=== PATIENT | female | born 1980 | race African-American/Black ===

== ENCOUNTER 2016-08-21 19:59 | Emergency (ER) | payer SELFPAY ==
--- NOTE | 2016-08-21 20:14 | ER Document Report ---
ED Medical Screen (RME) - General Chief Complaint: Sore Throat Stated Complaint: SORE THROAT Mode of Arrival: Ambulatory Information source: Patient Notes: pt presents with sore throat, fever that started today. Tonsillar exudate noted I have greeted and performed a rapid initial assessment of this patient. A comprehensive ED assessment and evaluation of the patient, analysis of test results and completion of the medical decision making process will be conducted by additional ED providers. TRAVEL OUTSIDE OF THE [place] IN LAST 30 DAYS: No - Related Data Allergies/Adverse Reactions: No Known Allergies Allergy (Verified 12/15/15 09:23) Past Medical History - Social History Chew tobacco use (# tins/day): No Frequency of alcohol use: Rare Drug Abuse: None Neurological Medical History: Reports: Hx Migraine Renal/ Medical History: Denies: Hx Peritoneal Dialysis - Immunizations Immunizations up to date: Yes Hx Diphtheria, Pertussis, Tetanus Vaccination: Yes Physical Exam - Vital signs Vitals: Temp Pulse Resp BP Pulse Ox 100.1 F 98 16 129/85 H 100 08/21/16 20:05 08/21/16 20:05 08/21/16 20:05 08/21/16 20:05 08/21/16 20:05 Course - Vital Signs Vital signs: Temp Pulse Resp BP Pulse Ox 100.1 F 98 16 129/85 H 100 08/21/16 20:05 08/21/16 20:05 08/21/16 20:05 08/21/16 20:05 08/21/16 20:05
[2016-08-22] MEDS ORDERED: DEXAMETHASONE 4 MG TABLET PO ONE (01:51)
--- NOTE | 2016-08-22 01:53 | ER Document Report ---
ED General - General Chief Complaint: Sore Throat Stated Complaint: SORE THROAT Mode of Arrival: Ambulatory Notes: Patient is a 36-year-old female without past medical history who presents with 2 days of progressively worsening sore throat. Patient does describe the pain in her throat as being a constant, severe, stabbing pain. States swallowing worsens the pain. She is not tried anything to improve her symptoms. Denies recent history of similar symptoms in the past. She is uncertain she has had sick contacts. She has not seen her primary care doctor regarding today's concerns. She has not had a fever at home but does note generalized fatigue. Denies any difficulty breathing and states she is able to swallow it is just painful. TRAVEL OUTSIDE OF THE [place] IN LAST 30 DAYS: No - Related Data Allergies/Adverse Reactions: No Known Allergies Allergy (Verified 12/15/15 09:23) Past Medical History - General Information source: Patient - Social History Smoking Status: Current Every Day Smoker Chew tobacco use (# tins/day): No Frequency of alcohol use: Rare Drug Abuse: None Lives with: Spouse/Significant other Family History: Reviewed & Not Pertinent Patient has suicidal ideation: No Patient has homicidal ideation: No Neurological Medical History: Reports: Hx Migraine Renal/ Medical History: Denies: Hx Peritoneal Dialysis - Immunizations Immunizations up to date: Yes Hx Diphtheria, Pertussis, Tetanus Vaccination: Yes Review of Systems - Review of Systems Notes: Constitutional: Negative for fever. HENT: Positive for sore throat. Eyes: Negative for visual changes. Cardiovascular: Negative for chest pain. Respiratory: Negative for shortness of breath. Gastrointestinal: Negative for abdominal pain, vomiting or diarrhea. Genitourinary: Negative for dysuria. Musculoskeletal: Negative for back pain. Skin: Negative for rash. Neurological: Negative for headaches, weakness or numbness. 10 point ROS negative except as marked above and in HPI. Physical Exam - Vital signs Vitals: Temp Pulse Resp BP Pulse Ox 100.1 F 98 16 129/85 H 100 08/21/16 20:05 08/21/16 20:05 08/21/16 20:05 08/21/16 20:05 08/21/16 20:05 Interpretation: Normal Notes: PHYSICAL EXAMINATION: GENERAL: Well-appearing, well-nourished and in no acute distress. HEAD: Atraumatic, normocephalic. EYES: Pupils equal round and reactive to light, extraocular movements intact, sclera anicteric, conjunctiva are normal. ENT: Bilateral tonsillar exudates. Uvula is midline. Oropharynx is widely patent. No swelling beneath the tongue. NECK: Normal range of motion, bilateral anterior cervical lymphadenopathy as well as bilateral submandibular lymphadenopathy LUNGS: Breath sounds clear to auscultation bilaterally and equal. No wheezes rales or rhonchi. HEART: Regular rate and rhythm without murmurs ABDOMEN: Soft, nontender, normoactive bowel sounds. No guarding, no rebound. No masses appreciated. EXTREMITIES: Normal range of motion, no pitting or edema. No cyanosis. NEUROLOGICAL: No focal neurological deficits. Moves all extremities spontaneously and on command. PSYCH: Normal mood, normal affect. SKIN: Warm, Dry, normal turgor, no rashes or lesions noted. Course - Re-evaluation Re-evalutation: 08/22/16 01:52 Presentation of several days of sore throat in an otherwise well-appearing patient. Rapid strep is negative. History and exam are not consistent with a retropharyngeal abscess or peritonsillar abscess. Airway is patent. No difficulty handling oral secretions. Vitals within normal limits. Patient has been treated with a single dose of oral Decadron to assist with pharyngeal swelling. At this time will discharge with return precautions and follow-up recommendations. Verbal discharge instructions given a the bedside and opportunity for questions given. Medication warnings reviewed. Patient is in agreement with this plan and has verbalized understanding of return precautions and the need for primary care follow-up in the nex - Vital Signs Vital signs: Temp Pulse Resp BP Pulse Ox 99.0 F 85 16 123/79 99 08/22/16 02:16 08/22/16 02:16 08/21/16 20:05 08/22/16 02:16 08/22/16 02:16 Discharge - Discharge Clinical Impression: Sore throat Condition: Good Disposition: HOME, SELF-CARE Additional Instructions: Your strep test is negative. Your sore throat is likely due to a viral infection and should resolve in the next 7-10 days. Please return if you began to develop difficulty swallowing, difficulty breathing, have worsening pain, or any other symptoms that are worrisome to you. Forms: Return to Work
[2016-08-22 02:18] VITALS: BP 123/79
== END 2016-08-22 02:18 | disposition home or self-care (01) ==
LOC: ER 19:59
DX: J02.9 Acute pharyngitis, unspecified (principal); R53.83 Other fatigue; F17.200 Nicotine dependence, unspecified, uncomplicated
CPT/HCPCS: 87070; 87880; 99283

== ENCOUNTER 2017-08-21 14:53 | Emergency (ER) | payer SELFPAY ==
[2017-08-21 15:17] VITALS: BP 119/68
--- NOTE | 2017-08-21 17:50 | ER Document Report ---
ED Extremity Problem, Lower - General Chief Complaint: Ankle Pain Stated Complaint: ANKLE PAIN Time Seen by Provider: 08/21/17 17:08 Mode of Arrival: Ambulatory Information source: Patient TRAVEL OUTSIDE OF THE [place] IN LAST 30 DAYS: No - HPI Patient complains to provider of: Pain Location: Ankle Notes: Patient is here with complaints of bilateral ankle pain. 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 For the last few weeks she has been having some pain and intermittent swelling to the bilateral ankles. She states that when she gets home she elevates them and this seems to improve. She was having some pain and swelling today and had to call off work. Her work told her that she needed to have a work note so she came in the emergency department stating that she needs a work note due to missing work. She denies any injuries to the ankles. She denies fevers. She denies numbness , tingling, weakness. She denies any chest pain or shortness of breath. She denies any leg pain or swelling. She denies any nausea, vomiting, diarrhea. No redness. She has no other complaints at this time. The pain is worse with walking and standing and seems to improve when she rests and elevates. She states that she has had this happen intermittently for the past several years. - Related Data Allergies/Adverse Reactions: No Known Allergies Allergy (Verified 08/21/17 14:56) Past Medical History - Social History Smoking Status: Unknown if Ever Smoked Family History: Reviewed & Not Pertinent Patient has suicidal ideation: No Patient has homicidal ideation: No Neurological Medical History: Reports: Hx Migraine Renal/ Medical History: Denies: Hx Peritoneal Dialysis - Immunizations Immunizations up to date: Yes Hx Diphtheria, Pertussis, Tetanus Vaccination: Yes Review of Systems - Review of Systems -: Yes All other systems reviewed and negative Physical Exam - Vital signs Vitals: Temp Pulse Resp BP Pulse Ox 98.7 F 62 17 119/68 99 08/21/17 15:16 08/21/17 15:16 08/21/17 15:16 08/21/17 15:16 08/21/17 15:16 - Notes Notes: GENERAL: alert, cooperative, nontoxic, no distress. HEAD: normocephalic, atraumatic EYES: conjunctiva pink without discharge, no external redness or swelling. EARS: no external swelling, no external redness NOSE: atraumatic, no external swelling MOUTH/THROAT: mucous membranes moist and pink NECK: soft, supple, full range of motion, no meningismus. CHEST: no distress, lungs clear and equal throughout. No wheezing, rales, rhonchi. CARDIAC: regular rate and rhythm, no murmur, normal capillary refill, normal pulses. BACK: full range of motion, no CVA tenderness. EXTREMITIES: full range of motion of all extremities. No redness, no swelling. No tenderness to palpation of the ankles. Achilles are intact bilaterally. Normal Lewis's test. No calf swelling or tenderness. No pitting edema. Normal pulse and sensation distally. NEURO: alert and oriented 3, no focal deficits, full range of motion of all extremities. PYSCH: appropriate mood, affect. Patient is cooperative. SKIN: pink, warm, dry, no rash. Course - Re-evaluation Re-evalutation: 08/21/17 17:47 The patient is nontoxic appearing with stable vitals. She has had intermittent ankle pain bilaterally for the last few weeks without injury. On exam she is no significant tenderness, no swelling, no redness, normal neurovascular exam, compartments are soft. No calf pain or swelling. No pitting edema. Lungs are clear. Is likely some overuse causing her pain. She states that the main reason she came emergency department today was because she called off work and she was told she needed a work note. Patient will be discharged home with a prescription for Naprosyn with instructions to rest, ice, elevate. Follow-up with her doctor if she continues to have these problems. Follow-up sooner for increasing pain, high fever, redness, numbness, tingling, weakness, any further concerns. The patient's emergency department workup and current diagnosis were explained to the patient and or family. Follow-up instructions were provided. Medications if prescribed were discussed. Instructions for when to return to the emergency department including specific worrisome symptoms were discussed with the patient and/or family. - Vital Signs Vital signs: Temp Pulse Resp BP Pulse Ox 98.7 F 62 17 119/68 99 08/21/17 15:16 08/21/17 15:16 08/21/17 15:16 08/21/17 15:16 08/21/17 15:16 Discharge - Discharge Clinical Impression: Chronic ankle pain, bilateral Condition: Stable Disposition: HOME, SELF-CARE Instructions: Ice & Elevation ([facility]) Additional Instructions: Take medications as prescribed. You may also take 1000 mg of Tylenol every 6 hours as needed for pain. Rest, ice, elevate your ankles. Follow-up if not better in 1-2 weeks, sooner for increasing pain, high fever, redness, numbness, tingling, weakness, any further concerns. Prescriptions: Naproxen [Naprosyn] 500 mg PO BID #20 tablet Forms: Elevated Blood Pressure, Smoking Cessation Education, Return to Work Referrals: [facility] [Provider Group] - Follow up as needed
== END 2017-08-21 18:06 | disposition home or self-care (01) ==
LOC: ER 14:53
DX: G89.29 Other chronic pain (principal); M25.572 Pain in left ankle and joints of left foot; M25.571 Pain in right ankle and joints of right foot
CPT/HCPCS: 99284

== ENCOUNTER 2017-11-07 12:33 | Emergency (ER) | payer SELFPAY ==
[2017-11-07 12:42] VITALS: BP 116/82
[2017-11-07] MEDS ORDERED: PROMETHAZINE HCL INJ 25 MG/1 ML VIAL IM ONE (13:28)
[2017-11-07] MEDS ORDERED: KETOROLAC TROMETHAMINE INJ/PF 30 MG/1 ML SDV IM ONE (13:28)
--- NOTE | 2017-11-07 13:36 | ER Document Report ---
HPI - HPI Pain Level: 2 Notes: Patient is a 37-year-old female who presents to the ED complaining of continued intermittent bilateral ankle pain and "feeling bad" x 1 week. Patient states that she had one episode of vomiting that was mucousy, but otherwise she has abdominal pain. 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 Patient has had this ankle pain for 1 year. She has not been seen by her primary care doctor or any specialist for her chronic issues. She is still eating and drinking without difficulties. She is urinating normally and having normal bowel movements. Denies any drug allergies. Patient states that she needs an antibiotic for her pain. Patient is currently on her menstrual period. She denies . On occasion she will have some nausea. No other concerns or complaints at this time. Denies any headache, fever, neck pain, URI, sore throat, chest pain, palpitations, syncope, cough, shortness of breath, wheeze, dyspnea, abdominal pain, diarrhea, urinary retention, dysuria, hematuria, loss of control of bowel or bladder, numbness/tingling, saddle anesthesia, muscle paralysis/weakness, or rash. - ROS Systems Reviewed and Negative: Yes All other systems reviewed and negative - REPRODUCTIVE Reproductive: DENIES: : - MUSCULOSKELETAL Musculoskeletal: REPORTS: Extremity pain - bilateral ankles Past Medical History - Social History Smoking Status: Current Every Day Smoker Chew tobacco use (# tins/day): No Frequency of alcohol use: Occasional Drug Abuse: None Family History: Reviewed & Not Pertinent Patient has suicidal ideation: No Patient has homicidal ideation: No Neurological Medical History: Reports: Hx Migraine Renal/ Medical History: Denies: Hx Peritoneal Dialysis - Immunizations Immunizations up to date: Yes Hx Diphtheria, Pertussis, Tetanus Vaccination: Yes Vertical Provider Document - CONSTITUTIONAL Agree With Documented VS: Yes Notes: PHYSICAL EXAMINATION: GENERAL: Well-appearing, well-nourished and in no acute distress. HEAD: Atraumatic, normocephalic. EYES: Pupils equal round and reactive to light, extraocular movements intact, sclera anicteric, conjunctiva are normal. ENT: EAC clear b/l. TM's intact b/l without erythema, fluid, or perforation. Nares patent and without discharge. oropharynx clear without exudates. No tonsilar hypertrophy or erythema. Moist mucous membranes. No sinus tenderness. NECK: Normal range of motion, supple without lymphadenopathy LUNGS: Breath sounds clear to auscultation bilaterally and equal. No wheezes rales or rhonchi. HEART: Regular rate and rhythm without murmurs, rubs, gallops. ABDOMEN: Soft, nondistended abdomen. No guarding, no rebound. No masses appreciated. Normal bowel sounds present. No CVA tenderness bilaterally. No tenderness at all. Musculoskeletal: Ankles b/l: No swelling, erythema, warmth, or deformity. FROM to passive/active. Strength 5+/5. Jorge neg. N/V intact distal. Pt able to ambulate in the room w/o difficulty. Achilles intact. Extremities: No cyanosis, clubbing, or edema b/l. Peripheral pulses 2+. Capillary refill less than 3 seconds. NEUROLOGICAL: Normal speech, normal gait. Normal sensory, motor exams PSYCH: Normal mood, normal affect. SKIN: Warm, Dry, normal turgor, no rashes or lesions noted. - INFECTION CONTROL TRAVEL OUTSIDE OF THE [place] IN LAST 30 DAYS: No Course - Re-evaluation Re-evalutation: 11/07/17 13:32 Patient is an afebrile, well-hydrated, 37-year-old female who presents to the ED with chronic bilateral ankle pain. Vitals are acceptable. PE is otherwise unremarkable for any neurovascular compromise, obvious tendon/ligament rupture, obvious fracture/dislocation, septic joint, DVT. Toradol and Phenergan given IM today. Patient is tolerating p.o. without difficulties. Patient is nontoxic -appearing, speaking full sentences, and no signs of illness are noted. Her abdomen is soft and nontender. She has no significant tachycardia, tachypnea, or hypoxia. No labs or imaging warranted at this time based on H&P. Advised patient that I will not be giving her an antibiotic for her ankle pain as that is not indicated for that and I do not suspect infection. Pt is reported to be on her menstrual cycle at this time as well. Declined UA/hcg. At this time, I do not have any other further testing that is needed and she can follow-up with her family provider and/or orthopedics. Rx Voltaren gel and Zofran. Conservative measures otherwise for symptoms. Schedule an appointment with orthopedics for further evaluation and management. Return to the ED with any worsening/concerning symptoms otherwise as reviewed discharge. Patient is in agreement. - Vital Signs Vital signs: Temp Pulse Resp BP Pulse Ox 99 F 84 18 116/82 97 11/07/17 12:39 11/07/17 12:39 11/07/17 12:39 11/07/17 12:39 11/07/17 12:39 Discharge - Discharge Clinical Impression: Bilateral ankle pain Qualifiers: Chronicity: chronic Qualified Code(s): M25.571 - Pain in right ankle and joints of right foot; M25.572 - Pain in left ankle and joints of left foot; M25.572 - Pain in left ankle and joints of left foot; G89.29 - Other chronic pain; G89.29 - Other chronic pain Condition: Stable Disposition: HOME, SELF-CARE Additional Instructions: Rest, Ice, Compression, Elevation Tylenol/ibuprofen as needed Light stretches daily Strength exercises as able Moist heat and massage may help F/u with your PCP in 3-5 days for a recheck Schedule an appointment with orthopedics for further evaluation and management Return to the ED with any worsening symptoms and/or development of fever, headache, chest pain, palpitations, syncope, shortness of breath, trouble breathing, abdominal pain, n/v/d, muscle weakness/paralysis, numbness/tingling, swelling, redness, or other worsening symptoms that are concerning to you. Prescriptions: Diclofenac Sodium [Voltaren] 4 gm TP QID PRN #100 gel..gm. PRN Reason: Ondansetron [Zofran Odt 4 mg Tablet] 1 - 2 tab PO Q4H PRN #15 tab.rapdis PRN Reason: For Nausea/Vomiting Forms: Smoking Cessation Education Referrals: [facility] [Provider Group] - Follow up as needed
== END 2017-11-07 14:02 | disposition home or self-care (01) ==
LOC: ER 12:33
DX: G89.29 Other chronic pain (principal); M25.571 Pain in right ankle and joints of right foot; M25.572 Pain in left ankle and joints of left foot; R11.2 Nausea with vomiting, unspecified; F17.200 Nicotine dependence, unspecified, uncomplicated
CPT/HCPCS: 99283; 96372; J1885; J2550

== ENCOUNTER 2018-04-02 18:13 | Emergency (ER) | payer MEDICAID ==
[2018-04-02 18:49] VITALS: BP 107/61
--- NOTE | 2018-04-02 20:20 | ER Document Report ---
ED General - General Chief Complaint: Back Pain Stated Complaint: BACK PAIN Time Seen by Provider: 04/02/18 20:10 Mode of Arrival: Ambulatory Information source: Patient, Relative Notes: Patient is a 37-year-old female comes emergency room complaining of having gastritis over the weekend and a flareup of her sciatica. Patient states that she believes the gastritis cleared first she had some vomiting and some diarrhea until last night. And she believes that that set up for sciatica which is also better today. She has not had any vomiting or diarrhea for the last 24 hours she needs to go back to work tomorrow and to want to be checked out to make sure she was okay to do so. She does not want lab work to be performed. She denies any other medical problems with the exception of the history of sciatica. TRAVEL OUTSIDE OF THE [place] IN LAST 30 DAYS: No - HPI Onset: Other - 3 days Onset/Duration: Sudden Quality of pain: No pain Severity: Moderate Pain Level: 3 Associated symptoms: Body/muscle aches, Diarrhea, Vomiting Exacerbated by: Movement Relieved by: Remaining still Similar symptoms previously: Yes Recently seen / treated by doctor: No - Related Data Allergies/Adverse Reactions: No Known Allergies Allergy (Verified 08/21/17 14:56) Past Medical History - General Information source: Patient, Relative - Social History Smoking Status: Current Every Day Smoker Cigarette use (# per day): Yes - Pack a day Chew tobacco use (# tins/day): No Smoking Education Provided: Yes Frequency of alcohol use: None Drug Abuse: None Family History: Reviewed & Not Pertinent Patient has suicidal ideation: No Patient has homicidal ideation: No Neurological Medical History: Reports: Hx Migraine Renal/ Medical History: Denies: Hx Peritoneal Dialysis - Immunizations Immunizations up to date: Yes Hx Diphtheria, Pertussis, Tetanus Vaccination: Yes Review of Systems - Review of Systems Constitutional: No symptoms reported EENT: No symptoms reported Cardiovascular: No symptoms reported Respiratory: No symptoms reported Gastrointestinal: Diarrhea, Nausea, Vomiting Genitourinary: No symptoms reported Female Genitourinary: No symptoms reported Musculoskeletal: Back pain Skin: No symptoms reported Hematologic/Lymphatic: No symptoms reported Neurological/Psychological: No symptoms reported -: Yes All other systems reviewed and negative Physical Exam - Vital signs Vitals: Temp Pulse Resp BP Pulse Ox 99.3 F 113 H 14 107/61 97 04/02/18 18:23 04/02/18 18:23 04/02/18 18:23 04/02/18 18:23 04/02/18 18:23 Interpretation: Tachycardic - Notes Notes: PHYSICAL EXAMINATION: GENERAL: Well-appearing, well-nourished and in no acute distress. HEAD: Atraumatic, normocephalic. EYES: Pupils equal round and reactive to light, extraocular movements intact, conjunctiva are normal. ENT: Nares patent, oropharynx clear without exudates. Moist mucous membranes. NECK: Normal range of motion, supple without lymphadenopathy LUNGS: Breath sounds clear to auscultation bilaterally and equal. No wheezes rales or rhonchi. HEART: Regular rate and rhythm without murmurs ABDOMEN: Soft, nontender, nondistended abdomen. No guarding, no rebound. No masses appreciated. Patient clearly appears healthier than which she sounded like over the weekend. She is awake alert and oriented her abdominal exam is benign there is no pain discomfort. Female : deferred Musculoskeletal: Normal range of motion, no pitting or edema. No cyanosis. Further evaluation patient's back shows some mild paravertebral tenderness around L4-L5 area. She also has some slight tenderness in the right sciatic notch area. But as patient states it is getting better. DTRs are normal. NEUROLOGICAL: Cranial nerves grossly intact. Normal speech, normal gait. Normal sensory, motor exams PSYCH: Normal mood, normal affect. SKIN: Warm, Dry, normal turgor, no rashes or lesions noted. Course - Re-evaluation Re-evalutation: 04/02/18 20:20 Patient states she is feeling 100% better than she did on Monday. She is requesting a return to work note for tomorrow. She has no complaints today and feels much better. - Vital Signs Vital signs: Temp Pulse Resp BP Pulse Ox 99.3 F 113 H 14 107/61 97 04/02/18 18:23 04/02/18 18:23 04/02/18 18:23 04/02/18 18:23 04/02/18 18:23 Discharge - Discharge Clinical Impression: Gastroenteritis Sciatica Qualifiers: Laterality: right Qualified Code(s): M54.31 - Sciatica, right side Condition: Stable Disposition: HOME, SELF-CARE Instructions: Clear Liquid Diet ([facility]), Gastroenteritis (adult) ([facility]), Sciatica ([facility]) Additional Instructions: Home and rest. Continue you are currently doing. Highly suggest probably having a bland diet for the next 48 hours. Return to ER if you have any concerns or problems. Forms: Smoking Cessation Education, Return to Work
== END 2018-04-02 20:51 | disposition home or self-care (01) ==
LOC: ER 18:13
DX: K52.9 Noninfective gastroenteritis and colitis, unspecified (principal); M54.31 Sciatica, right side; M79.10 Myalgia, unspecified site; R00.0 Tachycardia, unspecified; F17.210 Nicotine dependence, cigarettes, uncomplicated
CPT/HCPCS: 99283

== ENCOUNTER 2019-03-30 19:07 | Emergency (ER) | payer MEDICAID ==
[2019-03-30 19:15] VITALS: BP 101/66
--- NOTE | 2019-03-30 19:17 | ER Document Report ---
ED Medical Screen (RME) - General Chief Complaint: Medical Clearance Stated Complaint: MEDICAL CLEARANCE Time Seen by Provider: 03/30/19 19:14 Mode of Arrival: Ambulatory Information source: Patient Notes: 38-year-old female presented to ED for "medical release. She stated she needed a note to go back to work. She has not been to the ER in a year. She came to the door of the ER triage room and stated she needed to go to her car for 8 minutes. I have not seen her again since then. Patient was called multiple times and we never did see the patient again. TRAVEL OUTSIDE OF THE [place] IN LAST 30 DAYS: No - Related Data Allergies/Adverse Reactions: No Known Allergies Allergy (Verified 08/21/17 14:56) Past Medical History Neurological Medical History: Reports: Hx Migraine Renal/ Medical History: Denies: Hx Peritoneal Dialysis - Immunizations Immunizations up to date: Yes Hx Diphtheria, Pertussis, Tetanus Vaccination: Yes Physical Exam - Vital signs Vitals: Temp Pulse Resp BP Pulse Ox 98.1 F 126 H 18 101/66 99 03/30/19 19:12 03/30/19 19:12 03/30/19 19:12 03/30/19 19:12 03/30/19 19:12 Course - Vital Signs Vital signs: Temp Pulse Resp BP Pulse Ox 98.1 F 126 H 18 101/66 99 03/30/19 19:12 03/30/19 19:12 03/30/19 19:12 03/30/19 19:12 03/30/19 19:12 Doctor's Discharge - Discharge Disposition: ELOPED
== END 2019-03-30 20:15 | disposition left against medical advice (07) ==
LOC: ER 19:07
DX: Z53.21 Procedure and treatment not carried out due to patient leaving prior to being seen by health care provider (principal)

== ENCOUNTER 2019-03-31 09:25 | Emergency (ER) | payer MEDICAID ==
[2019-03-31 09:34] VITALS: BP 122/68
== END 2019-03-31 11:35 | disposition left against medical advice (07) ==
LOC: ER 09:25
DX: Z53.21 Procedure and treatment not carried out due to patient leaving prior to being seen by health care provider (principal)